=== PATIENT | female | born 2000 | race Asian ===

== ENCOUNTER 2018-10-07 18:42 | Emergency (ER) | payer OTHER ==
[~2018-10-07] VITALS: Ht 165.1 cm; Wt 46.0 kg
[2018-10-07 19:36] LABS: PLATELET COUNT 216 x10^3mcL (130-400)
[2018-10-07 19:38] LABS: RED CELL DISTRIBUTION WIDTH 15.5 % (11.5-14.5)
[2018-10-07 19:43] LABS: CALCIUM 8.7 mg/dL (8.5-10.1); CARBON DIOXIDE 26.3 mmol/L (21-32); CHLORIDE SERUM 103 mmol/L (98-107); CREATININE SERUM 0.7 mg/dL (0.6-1.0); GFR1 > 60 mL/min; GLUCOSE SERUM 97 mg/dL (74-106); POTASSIUM SERUM 4.4 mmol/L (3.5-5.1); SODIUM SERUM 137 mmol/L (136-145)
[2018-10-07 19:47] LABS: MONOCYTE 7 % (0-7); SEGMENTED NEUTROPHILS 86 % (37-75)
[2018-10-07 19:48] LABS: ALBUMIN 3.8 g/dL (3.4-5.0); ALKALINE PHOSPHATASE 60 U/L (46-116); ALT/SGPT 22 U/L (14-59); AST/SGOT 16 U/L (15-37); BILIRUBIN TOTAL 0.3 mg/dL (0.20-1.00); TOTAL PROTEIN, SERUM 7.6 g/dL (6.4-8.2)
[2018-10-07 19:50] LABS: rbc morphology (normal/abnorm) ABNORMAL (NORMAL)
[2018-10-07 19:51] LABS: PLATELET MORPHOLOGY PLATELETS NORMAL; acanthocyte (spur cell) 1+; ovalocyte/elliptocyte 1+; schistocyte (helmet cell) 1+
[2018-10-07 20:39] VITALS: BP 105/52
== END 2018-10-07 20:39 | disposition home or self-care (01) ==
LOC: ED 18:42
PROVIDERS: Emergency Medicine
DX: R55 Syncope and collapse (principal); R10.9 Unspecified abdominal pain
CPT/HCPCS: 36415; 82962; Q0092